=== PATIENT | male | born 1975 | race Caucasian/White ===

== ENCOUNTER 2020-11-06 09:08 | Emergency (ER) | payer MEDICAID ==
[~2020-11-06] VITALS: Ht 180.3 cm; Wt 68.0 kg
[2020-11-06] MEDS ORDERED: THORAZINE PO (09:53)
[2020-11-06] MEDS ORDERED: LEVOTHYROXINE PO (09:53)
[2020-11-06] MEDS ORDERED: QUET400T4 PO ×2 (09:53→16:28)
--- NOTE | 2020-11-06 09:53 | NUR ---
ITZEL MARIN FROM [facility] FOR [facility] CLE[facility]ANCE. PT WAS PREVIOUSLY AT [place], DC'ED AND STOPPED TAKING PSYCH MEDS, REPORTS X3 DAYS OF METH USE. PT HAS PARANOIA SURROUNDING THE IDEA THAT HE IS BEING FOLLOWED AND TOLD BY VOICES TO HARM HIMSELF. PT MAKES STATEMENTS LIKE "DON'T ACCEPT FOOD FROM YOUR ENEMY. ARE YOU MY ENEMY?" TO RN. PT ORIENTED TO ED, EDUCATED ON PROCESS OF MEDICAL CLEARANCE. PT BELONGINGS BAGGED, INVENTORIED AND LOCKED. BELONGING LIST COMPLETED AND PLACED ON CHART. PT SITTING ON BED IN GOWN. PT GIVEN PO FLUIDS. UA COLLECTED AND SENT TO LAB. SITTER OUTSIDE OF ROOM FOR DIRECT OBSERVATION AND Q15 MIN SAFETY CHECKS.
[2020-11-06 10:38] LABS: BASOPHILS % (AUTO) 1 % (0-1); EOSINOPHILS % (AUTO) 0 % (1-7); LYMPHOCYTES % (AUTO) 15 % (22-44); MEAN CORPUSCULAR HEMOGLOBIN 30.1 pg (27.5-34.5); MEAN CORPUSCULAR HGB CONC 33.2 g/dL (33.2-36.2); MEAN PLATELET VOLUME 8.2 fL (7.4-10.4); MONOCYTES % (AUTO) 8 % (2-9); NEUTROPHILS % (AUTO) 76 % (42-75); PLATELET COUNT 296 x10^3/uL (130-400); RED BLOOD COUNT 4.94 x10^6/uL (4.38-5.82); RED CELL DISTRIBUTION WIDTH 14.6 % (9.4-14.8)
[2020-11-06 10:46] LABS: ANION GAP 10 mmol/L (5-15); CALCIUM 8.5 mg/dL (8.5-10.1); CHLORIDE 102 mmol/L (98-107)
[2020-11-06 10:47] LABS: SALICYLATE LEVEL < 1.7 mg/dL (2.8-20.0)
[2020-11-06 10:49] LABS: ALANINE AMINOTRANSFERASE 39 U/L (12-78); ALKALINE PHOSPHATASE 83 U/L (45-117); BILIRUBIN,TOTAL 0.8 mg/dL (0.2-1.0); CREATININE 1.03 mg/dL (0.7-1.3); TOTAL PROTEIN 8.3 g/dL (6.4-8.2)
[2020-11-06 11:12] LABS: AMPHETAMINE SCREEN, URINE Positive (Negative); BARBITURATE SCREEN, URINE Negative (Negative); BENZODIAZEPINE SCREEN, URINE Negative (Negative); CANNABINOID SCREEN, URINE Positive (Negative); COCAINE SCREEN, URINE Negative (Negative); METHADONE SCREEN, URINE Negative (Negative); OPIATE SCREEN, URINE Negative (Negative)
--- NOTE | 2020-11-06 11:12 | NUR ---
PT CONCERNED WITH GETTING OVER TO [facility], ASKS TO CALL FACILITY. PT REFUSES EKG BUT IS EDUCATED ON NEED TO MEDICALLY CLEAR SO THAT HE HIS CARE CAN BE FACILITATED AND GET HIM TO WHERE HE NEEDS TO BE TO RECIEVE HELP. PT REMAINS SUSPICIOUS OF STAFF. SITTER OUTSIDE OF ROOM FOR DIRECT OBSERVATION AND Q15 MIN SAFETY CHECKS.
[2020-11-06] MEDS ORDERED: LORazepam 1MG TABLET ONE (11:37)
--- NOTE | 2020-11-06 11:40 | NUR ---
PT PACING AROUND HALLS, BROUGHT BACK TO ED ROOM WITH HELP FROM SECURITY. PT MEDICATED WITH PO MEDS. ENCOURAGED TO REMAIN IN BED IN ROOM. PT VERBALIZES UNDERSTANDING. AWAITING MEAL TRAY.
[2020-11-06] MEDS ORDERED: LORazepam 1MG TABLET PO ONE ×2 (12:00)
--- NOTE | 2020-11-06 12:23 | NUR ---
PT REPORTS FEELING CALMER. NAD NOTED AT THIS TIME, PT STILL APPEARS ANXIOUS, HAVING DIFFICULT TIME REMAINING STILL AND OPTS TO PACE AROUND ROOM AND BE IN DOORWAY. SITTER OUTSIDE OF ROOM FOR DIRECT OBSERVATION AND Q15 MIN SAFETY CHECKS.
--- NOTE | 2020-11-06 12:56 | NUR ---
MEAL TRAY PROVIDED. PT COOPERATIVE AT THIS TIME. SITTER OUTSIDE OF ROOM FOR OBSERVATION AND Q15 MIN SAFETY CHECKS.
--- NOTE | 2020-11-06 13:14 | NUR ---
Pt lying in bed, eyes wide open talking to self. Sitter in line of site.
[2020-11-06] MEDS ORDERED: OLANZAPINE 5 MG TABLET ONE (14:06)
--- NOTE | 2020-11-06 14:07 | NUR ---
Pt up, talking to self trying to walk out of ER. bond trader here at bedside for evalution and po order zyprexa 5mg.
--- NOTE | 2020-11-06 14:10 | NUR ---
Pt refused zyprexa, returned to [facility].
[2020-11-06] MEDS ORDERED: OLANZAPINE 5 MG TABLET PO ONE (14:30)
--- NOTE | 2020-11-06 14:39 | NUR ---
Chlorpromazine 200mg qhs Synthroid 75mcg q day serroquel 400mg 2 tab q day at hs
--- NOTE | 2020-11-06 15:10 | NUR ---
Pt medicated with thorazine per order.. Pt picked at his nose has abrasion/skin tear applied abx ointment and covered with bandaid.
--- NOTE | 2020-11-06 15:42 | NUR ---
Pt needs constant redirection, wants to walk around ER. Sitter remains in line of site.
[2020-11-06] MEDS ORDERED: QUETIAPINE 25MG TABLET PO PRN (16:00)
--- NOTE | 2020-11-06 16:56 | NUR ---
Pt in line of site of sitter, walks around room and heck is redirectable.
[2020-11-06] MEDS ORDERED: LEVO75TA PO (17:05)
[2020-11-06] MEDS ORDERED: CHLO200T2 PO (17:13)
--- NOTE | 2020-11-06 17:49 | NUR ---
Swabbed pt MIS DIRECTOR for covid walked to lab.
--- NOTE | 2020-11-06 17:59 | NUR ---
Ja murrell arrived from pharmacy for QS dose; placed in med room box.
[2020-11-06 18:04] VITALS: BP 139/89
--- NOTE | 2020-11-06 18:15 | NUR ---
Pt watching tv, is calm, quiet and cooperative.
--- NOTE | 2020-11-06 18:49 | NUR ---
Attempted to give report to [facility] for continuity; U not available at this time. Report to JAEL Bustos
--- NOTE | 2020-11-06 18:53 | NUR ---
received report from JAEL Feliz
--- NOTE | 2020-11-06 19:34 | NUR ---
Pt to be admitted to [facility], room 388-2. Report called to JAEL Paz.
[2020-11-06] MEDS ORDERED: QUETIAPINE 200 MG TABLET PO SCH (21:00)
[2020-11-06] MEDS ORDERED: BENZTROPINE 1 MG TABLET PO SCH (21:00)
[2020-11-07] MEDS ORDERED: LEVOTHYROXINE 75 MCG TABLET PO SCH (06:00)
== END 2020-11-06 20:34 | disposition admitted as inpatient to this hospital (09) ==
LOC: ED 09:38
DX: F23 Brief psychotic disorder (principal); Z20.822 Contact with and (suspected) exposure to COVID-19; F32.9 Major depressive disorder, single episode, unspecified; F22 Delusional disorders; R00.0 Tachycardia, unspecified
CPT/HCPCS: 36415; 80053; 80299; 80307; 80320; 80329; 85025; 87426; 93005; 99285; Q0161; G0480

== ENCOUNTER 2020-11-06 19:51 | Inpatient (IN) | payer MEDICAID ==
[~2020-11-06] VITALS: Ht 180.3 cm; Wt 65.8 kg
[2020-11-06 19:35] VITALS: BP 125/70
[~2020-11-06 19:51] MED LIST: CHLO200T2 PO; LEVO75TA PO; LEVOTHYROXINE PO; QUET400T4 PO; THORAZINE PO
[2020-11-06] MEDS ORDERED: POLYETHYLENE GLYCOL 17 GM PACKET PO PRN (20:30)
[2020-11-06] MEDS ORDERED: BISACODYL 10 MG SUPP PR PRN (20:30)
[2020-11-06] MEDS ORDERED: ONDANSETRON ODT 4 MG PO PRN (20:30)
[2020-11-06] MEDS ORDERED: DOCUSATE 100 MG CAPSULE PO PRN (20:30)
[2020-11-06] MEDS ORDERED: QUETIAPINE 25MG TABLET PO PRN (20:30)
[2020-11-06] MEDS ORDERED: PLEASE ENTER HEIGHT AND WEIGHT MC SCH (21:00)
[2020-11-06] MEDS: CHLORPROMAZINE 100MG TAB PO SCH (21:56)
[2020-11-06] MEDS: QUETIAPINE 200 MG TABLET PO SCH (21:56)
[2020-11-06] MEDS: BENZTROPINE 1 MG TABLET PO SCH (21:56)
[2020-11-07 00:17] VITALS: BP 125/70
[2020-11-07] MEDS: LEVOTHYROXINE 75 MCG TABLET PO SCH (06:05)
[2020-11-07 07:33] VITALS: BP 122/81
[2020-11-07] MEDS: BENZTROPINE 1 MG TABLET PO SCH ×2 (08:51→20:10)
[2020-11-07 08:52] LABS: CHOL/HDL RATIO 3.9; FREE T4 (FREE THYROXINE) 1.58 ng/dL (0.76-1.46); LDL/HDL RATIO 2.5 (0.5-3.0)
[2020-11-07] MEDS: QUETIAPINE 200 MG TABLET PO SCH (20:10)
[2020-11-07] MEDS: CHLORPROMAZINE 100MG TAB PO SCH (20:10)
[2020-11-07] MEDS: ACETAMINOPHEN 325 MG TABLET PO PRN (20:10)
[2020-11-07] MEDS: MUPIROCIN OINT 2%, 22GM TP SCH (21:11)
[2020-11-08] MEDS: MUPIROCIN OINT 2%, 22GM TP SCH ×2 (05:48→17:00)
[2020-11-08] MEDS: LEVOTHYROXINE 75 MCG TABLET PO SCH (05:48)
[2020-11-08] MEDS ORDERED: ORAJEL 7GM TUBE MM PRN (08:30)
[2020-11-08] MEDS: BENZTROPINE 1 MG TABLET PO SCH ×2 (09:00→20:40)
[2020-11-08] MEDS: CHLORPROMAZINE 100MG TAB PO SCH (20:40)
[2020-11-08] MEDS: QUETIAPINE 200 MG TABLET PO SCH (20:41)
[2020-11-09] MEDS: MUPIROCIN OINT 2%, 22GM TP SCH ×2 (05:44→15:21)
[2020-11-09] MEDS: LEVOTHYROXINE 75 MCG TABLET PO SCH (05:44)
[2020-11-09] MEDS: ACETAMINOPHEN 325 MG TABLET PO PRN (05:52)
[2020-11-09 07:48] VITALS: BP 112/73
[2020-11-09] MEDS: BENZTROPINE 1 MG TABLET PO SCH (09:00)
[2020-11-09] MEDS ORDERED: LORazepam 1MG TABLET PO ONE (17:30)
[2020-11-09] MEDS: QUETIAPINE 200 MG TABLET PO SCH (20:57)
[2020-11-09] MEDS: CHLORPROMAZINE 100MG TAB PO SCH (20:57)
[2020-11-10] MEDS: LEVOTHYROXINE 75 MCG TABLET PO SCH (05:55)
[2020-11-10] MEDS: MUPIROCIN OINT 2%, 22GM TP SCH ×2 (05:56→20:29)
[2020-11-10] MEDS ORDERED: MELA5CAP PO (16:46)
[2020-11-10] MEDS: MELATONIN 5 MG TABLET PO SCH (20:32)
[2020-11-10] MEDS: CHLORPROMAZINE 100MG TAB PO SCH (20:32)
[2020-11-10] MEDS: QUETIAPINE 200 MG TABLET PO SCH (20:32)
[2020-11-11] MEDS: MUPIROCIN OINT 2%, 22GM TP SCH ×2 (06:13→18:41)
[2020-11-11] MEDS: LEVOTHYROXINE 75 MCG TABLET PO SCH (06:14)
[2020-11-11 19:26] VITALS: BP 94/69
[2020-11-11] MEDS: QUETIAPINE 200 MG TABLET PO SCH (20:00)
[2020-11-11] MEDS: CHLORPROMAZINE 100MG TAB PO SCH (20:00)
[2020-11-11] MEDS: MELATONIN 5 MG TABLET PO SCH (20:01)
[2020-11-12] MEDS: MUPIROCIN OINT 2%, 22GM TP SCH ×2 (06:08→18:34)
[2020-11-12] MEDS: LEVOTHYROXINE 75 MCG TABLET PO SCH (06:08)
[2020-11-12 19:27] VITALS: BP 110/79
[2020-11-12] MEDS: MELATONIN 5 MG TABLET PO SCH (20:02)
[2020-11-12] MEDS: QUETIAPINE 200 MG TABLET PO SCH (20:02)
[2020-11-12] MEDS: CHLORPROMAZINE 100MG TAB PO SCH (20:02)
[2020-11-13] MEDS: MUPIROCIN OINT 2%, 22GM TP SCH ×2 (06:00→06:01)
[2020-11-13] MEDS: LEVOTHYROXINE 75 MCG TABLET PO SCH (06:01)
[2020-11-13 08:00] VITALS: BP 103/70
[2020-11-13] MEDS ORDERED: LEVO75TA PO (09:23)
[2020-11-13] MEDS ORDERED: MELA5TAB14 PO (09:23)
[2020-11-13] MEDS ORDERED: QUET200T PO (09:23)
[2020-11-13] MEDS ORDERED: CHLO100T6 PO (09:23)
== END 2020-11-13 11:00 | disposition home or self-care (01) | DRG 885 ==
LOC: 3E 19:51
PROVIDERS: ADMIT Psychiatry & Neurology Psychosomatic Medicine; ATTEND Psychiatry & Neurology Psychosomatic Medicine
DX: F20.0 Paranoid schizophrenia (principal); F15.20 Other stimulant dependence, uncomplicated; E03.9 Hypothyroidism, unspecified; F12.10 Cannabis abuse, uncomplicated; G47.00 Insomnia, unspecified; F17.210 Nicotine dependence, cigarettes, uncomplicated
CPT/HCPCS: 36415; 71045; 80053; 80061; 80299; 80307; 80320; 80329; 82607; 84439; 84443; 85025; 87426; 93005; 99285; G0480; Q0161